=== PATIENT | male | born 1950 | race Two or more races ===

== ENCOUNTER → 2019-09-15 13:32 | Outpatient (CLI) | payer OTHER | END | disposition home or self-care (01) | LOC: LAB 13:32 | DX: R97.20 Elevated prostate specific antigen [PSA] (principal) ==

== ENCOUNTER → 2019-12-03 | Outpatient (CLI) | payer OTHER | END | disposition home or self-care (01) | LOC: SONOGRAMA 07:13 | DX: C61 Malignant neoplasm of prostate (principal); R97.20 Elevated prostate specific antigen [PSA] ==